=== PATIENT | female | born 1975 | race Asian ===

== ENCOUNTER → 2024-03-30 18:34 | Outpatient (REF) | payer OTHER, SELFPAY | LOC: WDC 18:34 | PROVIDERS: ATTENDING PHYSICIAN Family Medicine | DX: Z12.31 Encounter for screening mammogram for malignant neoplasm of breast (principal) | CPT/HCPCS: 77063; 77067 ==

== ENCOUNTER 2024-07-04 19:03 | Emergency (ER) | payer OTHER, SELFPAY ==
[2024-07-04 19:10] VITALS: BP 141/91
[2024-07-04 19:22] VITALS: BP 122/76
[2024-07-04 19:40] VITALS: BMI 40.5
[2024-07-04 19:44] LABS: % Basophils 0.6 % (0-2); % Immature Granulocytes 0.6 % (0-0.5); % Lymphocytes 33.1 % (20.5-51.1); % Monocytes 5.6 % (1.7-9.3); % Neutrophils 58.1 % (42.2-75.2); Absolute Basophils 0.1 10^3/uL (0-0.2); Absolute Eosinophils 0.2 10^3/uL (0-0.7); Absolute Immature Granulocytes 0.1 10^3/uL (0-0.05); Absolute Lymphocytes 2.8 10^3/uL (1.2-3.4); Absolute Monocytes 0.5 10^3/uL (0.1-0.6); Absolute Neutrophils 4.9 10^3/uL (1.4-6.5); Hematocrit 36.4 % (37.0-47.0); Mean Corp Hgb Conc. 35.7 g/dL (33.0-37.0); Mean Corpuscular Hgb 27.9 pg (27.0-31.0); Mean Corpuscular Volume 78.1 fL (81.0-99.0); Mean Platelet Volume 10.3 fL (7.4-10.4); Nucleated Red Blood Cells % 0 %; Platelet Count 219 10^3/uL (130-400); Red Blood Cell Count 4.66 10^6/uL (4.20-5.40); Red Cell Dist. Width 12.3 % (11.5-14.5); White Blood Cell Count 8.5 10^3/uL (4.8-10.8)
[2024-07-04 20:13] LABS: ALT (SGPT) 33 U/L (0-35); AST (SGOT) 28 U/L (14-36); Albumin 4.1 g/dl (3.5-5.0); Alkaline Phosphatase 94 U/L (38-126); Blood Urea Nitrogen 11 mg/dl (7-17); Calcium 9.5 mg/dl (8.4-10.2); Carbon Dioxide 27 mmol/L (22-30); Chloride 97 mmol/L (98-107); Estimated Creatinine Clearance 120 ml/min; Glucose 356 mg/dl (70-99); Potassium 4.2 mmol/L (3.5-5.1); Sodium 135 mmol/L (135-145); Total Bilirubin 1.3 mg/dl (0.2-1.3); Total Protein 6.7 g/dl (6.3-8.2); eGFR > 60.00
[2024-07-04 20:16] LABS: Troponin I < 0.012 ng/ml
[2024-07-04 20:18] LABS: D-Dimer 0.54 ug/mlFEU (0.00-0.50)
[2024-07-04 20:36] VITALS: BP 130/87
[2024-07-04] MEDS: NSS 1000 IV (20:52)
[2024-07-04 21:00] VITALS: BP 149/104
[2024-07-04 21:03] VITALS: BP 153/92
--- NOTE | 2024-07-04 21:24 | ED.GENMED ---
History of Present Illness
General
Chief Complaint: Chest Pain
Source: patient and family
Exam Limitations: none
Time Seen by Provider: 07/04/24 19:24
Nursing documentation reviewed up to this point in time: agreed with
History of Present Illness
History of Present Illness:
48-year-old female presenting to the emergency department today with concerns of chest discomfort starting yesterday seems to come and go seems to be worse when laying mainly to the left side with some associated shortness of breath. Denies similar
symptoms in the past. Improved symptoms since arrival here.
Past History
Past History
ED Past Medical History: Asthma; Negative HTN, Hypercholesterolemia or NIDDM
ED Past Surgical History: Other (Neck biopsy)
Social History
Tobacco: Non-smoker
Alcohol: None
Drug: None
Personal:
Living: with family
Employment: Employed
Review of Systems
Review of Systems
Allergies reviewed?: Yes
All Other Systems: ROS reviewed and negative except as documented in HPI and ROS
Phy Exam
Physical Exam
Physical Exam:
GENERAL: Alert , in no apparent distress
EYE: pupils equal and reactive
NECK: Supple, no significant adenopathy.
ENT: o/p clr, mmm.
CARDIAC: Regular rate and rhythm .
LUNGS: Clear breath sounds bilaterally, no acute respiratory distress, no wheezes/rales/rhonchi
ABDOMEN: Soft, without focal tenderness, no r/g, no cvat
NEUROLOGICAL: Alert and oriented, no focal neuro deficits
SKIN: Warm and dry, skin intact.
MUSCULOSKELETAL: No edema, well perfused.
PSYCH: Normal and appropriate interaction.
Scores
Heart Score for Chest Pain Patients
STEMI patient?: No
History: Slightly or Non-Suspicious
ECG: Normal
Age: >45 - <65 years
Risk Factors: 1 or 2 Risk Factors
Troponin: </= Normal Limit
Heart Score for Chest Pain Patients: 2
Heart Score Risk: 2.5% MACE over next 6 weeks
Course
Orders/Labs/Results
Orders:
Orders
07/04/24 19:04
EKG [Electrocardiogram (*1)] Urgent
Reason for Study: Chest Pain
EKG- Treatment ONCE
07/04/24 19:18
Cardiac Monitoring- Treatment ONCE
IV Insert/Care/Rem.- Treatment PRN
O2 Therapy [RESP] Urgent
Titrate/Wean O2 to maintain O2 sat greater than (%): 90
Special Instructions: Maintain sats >/=90%
Pulse Ox/spot Check [RESP] Urgent
Quantity: 1
Special Instructions: ON ROOM AIR
07/04/24 19:38
Complete Blood Count/With Diff Urgent
Comprehensive Metabolic Panel Urgent
Troponin I Urgent
07/04/24 19:54
Chest [CR Chest - 2 Views ] Urgent
Comment:
Reason For Exam: cp
07/04/24 20:01
D-Dimer Urgent
07/04/24 20:22
CT Chest Pe Study Urgent
Comment:
Reason For Exam: cp sob tachy
0.9% Sodium Chloride 1000 ml [Nss] 1,000 ml IV BOLUS
Abnormal Lab Results
07/04/24 07/04/24
19:38 20:01
Hct 36.4 L %
(37.0-47.0)
MCV 78.1 L fL
(81.0-99.0)
Abs Immat Gran (auto) 0.1 H 10^3/uL
(0-0.05)
Immature Gran % 0.6 H %
(0-0.5)
D-Dimer 0.54 H ug/mlFEU
(0.00-0.50)
Chloride 97 L mmol/L
(98-107)
Creatinine 0.5 L mg/dL
(0.6-1.0)
Glucose 356 H mg/dl
(70-99)
07/04/24 19:38
07/04/24 19:38
Vital Signs
Initial and Last Documented VS:
Initial Vital Signs
Temp Pulse Resp BP Pulse Ox
98.1 F 105 20 141/91 97
07/04/24 19:10 07/04/24 19:10 07/04/24 19:10 07/04/24 19:10 07/04/24 19:10
Last Documented Vital Signs
Temp Pulse Resp BP Pulse Ox
98.1 F 100 21 153/92 99
07/04/24 19:10 07/04/24 21:30 07/04/24 21:30 07/04/24 21:03 07/04/24 21:30
MDM/Problems Addressed
MDM/Problems Addressed:
48-year-old female presenting to the emergency department today with concerns of chest discomfort starting yesterday described as achy sometimes sharp since yesterday with associated shortness of breath. Upon arrival tachycardic. Denies any recent
trauma surgery mobilization but does have some chronic leg swelling D-dimer was ordered considering this which was mildly elevated concerning this a CT scan was obtained. Additionally glucose level of 356 was given a liter of fluid to treat this
troponin negative chest x-ray without emergent findings EKG without emergent findings otherwise. CT scan without emergent findings additional labs showing elevated glucose level which she was given fluids for otherwise will follow-up closely with
her primary care doctor low risk for ACS at this time return precautions given.
*Critical Care Note
Total Time (30-74mins, 75-104mins- exclusive of procedures): Not Applicable
ED Attending Note
-
Portions of this chart may have been created with voice recognition software.� Occasional wrong word or��sound alike� substitutions may have occurred due to the inherent limitations of voice recognition software.
Discharge Plan
Departure
Patient Disposition: Home (Routine Discharge)
Date of Disposition: 07/04/24
Time of Disposition: 22:46
Patient with high blood pressure during this ER visit?: No
Condition: Good
Covid-19: Not Applicable
Discharge Problem:
Chest pain
Instructions: Chest Pain DCA Follow Up
Prescriptions:
No Action
montelukast [Singulair] 5 MG tablet,chewable
10 mg PO DAILY PRN (Reason: allergy)
cetirizine [Zyrtec] 5 MG tablet
10 mg PO DAILY PRN (Reason: allergy)
albuterol sulfate 1 PUFF HFA aerosol inhaler
2 puff inhalation R Q4HPRN PRN (Reason: wheezing)
atorvastatin 40 mg Tablet
40 mg PO HS
Vitamin C 1,000 mg Tablet Extended Release
2,000 mg PO DAILY
Mounjaro 7.5 mg/0.5 mL Pen Injector
7.5 mg SC QWEEK
metformin 1,000 MG tablet
1,500 mg PO DAILY
Referrals:
Georgiana Culp DO [Family Provider] -
Activity Restrictions/Additional Instructions:
You came to the emergency department today with concerns of chest discomfort. Here you had a reassuring assessment but did show hyperglycemia. Please make sure this is controlled properly. Please have close with cardiology. Return to the
emergency department for any worsening, new or concerning symptoms.
Interventions
Interventions:
*Risk Screen - Suicide Last Done: 07/04/24 19:10
*General Assessment Last Done: 07/04/24 19:10
*Neglect/Abuse Screening Last Done: 07/04/24 19:10
ED- Fall Risk Assessment Last Done: 07/04/24 19:40
*Nursing Disposition Last Done: 07/04/24 22:53
ED- Cardiac Assessment Last Done: 07/04/24 19:40
Discharge Date and Time
Discharge Date/Time: 07/04/24 22:53
Print Language: SERBIAN
== END 2024-07-04 22:53 | disposition home or self-care (01) ==
LOC: EMR 19:03
PROVIDERS: Physician Assistant; EMERGENCY PHYSICIAN Emergency Medicine; FAMILY PHYSICIAN Family Medicine
DX: R07.89 Other chest pain (principal); R79.1 Abnormal coagulation profile; J45.909 Unspecified asthma, uncomplicated
CPT/HCPCS: 96360; 99285; 71046; 71275; 80053; 84484; 85025; 85379; 93005; Q9967

== ENCOUNTER → 2024-07-31 08:00 | Outpatient (REF) | payer OTHER, SELFPAY | LOC: HWRCS 08:00 | PROVIDERS: ATTENDING PHYSICIAN Family Medicine | DX: R01.1 Cardiac murmur, unspecified (principal); E07.89 Other specified disorders of thyroid | CPT/HCPCS: 76536 ==

== ENCOUNTER → 2024-07-31 08:29 | Outpatient (REF) | payer OTHER, SELFPAY | LOC: HWRAD 08:29 | PROVIDERS: ATTENDING PHYSICIAN Family Medicine | DX: R01.1 Cardiac murmur, unspecified (principal); E07.89 Other specified disorders of thyroid | CPT/HCPCS: 76536; 93306 ==

== ENCOUNTER 2024-08-09 15:18 | Emergency (ER) | payer OTHER, SELFPAY ==
[2024-08-09 15:24] VITALS: BP 131/91
[2024-08-09] MEDS: TORADOL 15 MG IV (17:16)
[2024-08-09 17:34] VITALS: BMI 37.2
[2024-08-09 17:39] VITALS: BP 137/82
[2024-08-09 18:00] VITALS: BP 136/85
--- NOTE | 2024-08-09 18:11 | ED.GENMED ---
History of Present Illness
<Trice Hayes PA-C - Last Filed: 08/11/24 12:50>
General
Chief Complaint: Skin Problem
Source: patient
Exam Limitations: none
Time Seen by Provider: 08/09/24 16:33
Nursing documentation reviewed up to this point in time: agreed with
History of Present Illness
History of Present Illness:
49 y/o F with h/o NIDDM
Being treated for shingles. Patient says she started with pain in her right back about 5 days ago and she went to urgent care where they thought it was musculoskeletal and she was given a muscle relaxer and lidocaine patch. Patient says the
following day she broke out in a vesicular rash to her back which wraps around to her axilla and under her right breast. She saw her family doctor where they gave her gabapentin 100 mg 3 times daily and Valtrex 1000 mg 3 times daily. Patient says
she started taking those but the pain was more significant over the course of 24 to 48 hours so she called them and 2 days ago they increased her gabapentin to 200 mg 3 times a day. She is continue to have new lesions but all within the same
dermatome on that breast and some crusting of the lesions in the posterior back region however over the last 24 hours she started having pain to her right neck that shoots up into her head behind her ear. She says she felt like a fullness in her
ear without hearing loss. She also felt like her right eye could be possibly blurry but she was not sure. She is worried about Dakota Galindo syndrome or herpes ophthalmicus although she did not see any rash anywhere. She has no eye pain. Patient
dad had a ruptured brain aneurysm.
Patient says she feels fine and then gets intermittent severe pains in her right head. She has not had any overt dizziness, nausea or vomiting
Past History
<Trice Hayes PA-C - Last Filed: 08/11/24 12:50>
Past History
ED Past Medical History: Asthma; Negative HTN, Hypercholesterolemia or NIDDM
ED Past Surgical History: Other (Neck biopsy)
Social History
Tobacco: Non-smoker
Alcohol: None
Drug: None
Personal:
Living: with family
Employment: Employed
Review of Systems
<Trice Hayes PA-C - Last Filed: 08/11/24 12:50>
Review of Systems
Allergies reviewed?: Yes
All Other Systems: Not applicable
Phy Exam
<Trice Hayes PA-C - Last Filed: 08/11/24 12:50>
Physical Exam
Physical Exam:
GENERAL: Alert , in no apparent distress, occasionally gets a shooting pain where she has to stop talking and hold her right head
HEAD: NCAT
EYE: pupils equal and reactive, no nystagmus, no photophobia
NECK: Supple,full rom, nontender
Nontender, no lymphadenopathy, no rash
ENT: o/p clr, mmm. Ear normal, no vesicles
CARDIAC: Regular rate and rhythm . no edema
LUNGS: Clear breath sounds bilaterally, no acute respiratory distress, no wheezes/rales/rhonchi
ABDOMEN: Soft, without focal tenderness, no r/g, no cvat
NEUROLOGICAL: Alert and orientedx 4, cn intact, no facial asymmetry, 5/5 strength in UE/LE, sensation intact, romberg neg, ambulates without assistance, neg pronator drift
SKIN: Warm and dry, patient has a vesicular rash consistent with herpes zoster in the right back wrapping around to her front and including on top of her right breast, there is no obvious signs of cellulitis
MUSCULOSKELETAL: No edema, well perfused.
PSYCH: Normal and appropriate interaction.
Course
<Trice Hayes PA-C - Last Filed: 08/11/24 12:50>
Orders/Labs/Results
Orders:
Orders
08/09/24 17:02
CT Head & Neck Angio W/wo IV Urgent
Comment:
Reason For Exam: pulsating pain neck to head right side today;
Ketorolac [Toradol] 15 mg IV NOW STA
08/09/24 17:32
C-Reactive Protein Urgent
Comment: ADDON
Complete Blood Count/With Diff Urgent
Comprehensive Metabolic Panel Urgent
ESR [Erythrocyte Sed Rate] Urgent
08/09/24 19:44
Add On- LAB Urgent
Tests Added?: crp
08/09/24 20:15
Oxycodone [Roxicodone] 5 mg PO NOW STA
08/09/24 20:38
Prednisone [Deltasone] 50 mg PO NOW STA
Abnormal Lab Results
08/09/24
17:32
MCV 78.9 L fL
(81.0-99.0)
ESR 66 H mm/hour
(0-20)
Creatinine 0.5 L mg/dL
(0.6-1.0)
Glucose 129 H mg/dl
(70-99)
Total Bilirubin 2.0 H mg/dl
(0.2-1.3)
AST 40 H U/L
(14-36)
ALT 62 H U/L
(0-35)
08/09/24 17:32
08/09/24 17:32
Vital Signs
Initial and Last Documented VS:
Initial Vital Signs
Temp Pulse Resp BP Pulse Ox
98.6 F 111 18 131/91 94
08/09/24 15:24 08/09/24 15:24 08/09/24 15:24 08/09/24 15:24 08/09/24 15:24
Last Documented Vital Signs
Temp Pulse Resp BP Pulse Ox
98.6 F 95 21 123/82 100
08/09/24 15:24 08/09/24 21:00 08/09/24 21:00 08/09/24 21:00 08/09/24 21:00
<Sandoval Sagastume MD - Last Filed: 08/09/24 20:45>
Orders/Labs/Results
Orders:
Orders
08/09/24 17:02
CT Head & Neck Angio W/wo IV Urgent
Comment:
Reason For Exam: pulsating pain neck to head right side today;
Ketorolac [Toradol] 15 mg IV NOW STA
08/09/24 17:32
C-Reactive Protein Urgent
Comment: ADDON
Complete Blood Count/With Diff Urgent
Comprehensive Metabolic Panel Urgent
ESR [Erythrocyte Sed Rate] Urgent
08/09/24 19:44
Add On- LAB Urgent
Tests Added?: crp
08/09/24 20:15
Oxycodone [Roxicodone] 5 mg PO NOW STA
08/09/24 20:38
Prednisone [Deltasone] 50 mg PO NOW STA
Abnormal Lab Results
08/09/24
17:32
MCV 78.9 L fL
(81.0-99.0)
ESR 66 H mm/hour
(0-20)
Creatinine 0.5 L mg/dL
(0.6-1.0)
Glucose 129 H mg/dl
(70-99)
Total Bilirubin 2.0 H mg/dl
(0.2-1.3)
AST 40 H U/L
(14-36)
ALT 62 H U/L
(0-35)
08/09/24 17:32
08/09/24 17:32
Vital Signs
Initial and Last Documented VS:
Initial Vital Signs
Temp Pulse Resp BP Pulse Ox
98.6 F 111 18 131/91 94
08/09/24 15:24 08/09/24 15:24 08/09/24 15:24 08/09/24 15:24 08/09/24 15:24
Last Documented Vital Signs
Temp Pulse Resp BP Pulse Ox
98.6 F 95 21 123/82 100
08/09/24 15:24 08/09/24 21:00 08/09/24 21:00 08/09/24 21:00 08/09/24 21:00
<Trice Hayes PA-C - Last Filed: 08/11/24 12:50>
MDM/Problems Addressed
Differential Diagnosis Includes:
Nerve pain, zoster, aneurysm, dissection, giant cell arteritis
MDM/Problems Addressed:
49-year-old female with a history of qnv-[id number]-wybfhurnu diabetes and family history of a brain aneurysm presents with severe intermittent right-sided neck pain that radiates up into her head and feels like a shooting sharp pain. It last for a
second and then goes away. She also has shingles which was diagnosed several days ago and has been on antiviral therapy as well as gabapentin. Her gabapentin was increased because of her right sided back pain but it is not helping. The pain in
her head is a new symptom over the last 24 hours. She has not had any overt vision changes but feels like it may not be a totally normal. She is not having any fatigue with chewing. She has no tenderness to her scalp. Patient has not had any
fevers or chills, there is no new rash in the region where her pain was in her head and neck.
There are no lesions in her ear or on her neck
She does have a zoster rash on her right back and wrapping around to her right breast
She is neuro intact
her vision is intact grossly
she has no eye pain
she is visibly having shooting pains right neck to head frequently which last 1 second
no rash in this region
labs sohw elevated ESR but normal CRP
no scalp tendenress, faitgue wht chewing; unlikely vasculitis wihch can sometimes occur with VZV
ct head/nekc angio neg
pt has thyroid nodules
already had thryoid US outpatient
given oxycodone for pain
will increase the gabapentin as this pain she has appears like nerve pain
close f/u encouraged
i spoke with rheum who agreed with round of steroids and they will see her in the office to make florence eshe doens't need eval for GCA.
<Trice Hayes PA-C - Last Filed: 08/11/24 12:50>
*Critical Care Note
Total Time (30-74mins, 75-104mins- exclusive of procedures): Not Applicable
ED Attending Note
<Trice Hayes PA-C - Last Filed: 08/11/24 12:50>
-
Portions of this chart may have been created with voice recognition software.� Occasional wrong word or��sound alike� substitutions may have occurred due to the inherent limitations of voice recognition software.
<Sandoval Sagastume MD - Last Filed: 08/09/24 20:45>
ED Attending Note
Patient seen and examined by attending physician: Yes
I performed the substantive portion of visit, reviewed & personally made and approve the management plan that is documented in note by myself or JOEL.: Yes
ED Attending Note:
49-year-old female complaining of pain to the right neck and right temporal area. Possibly minimal visual issues with this. Started a few days ago. Treated for shingles that started 3 to 4 days ago. Currently on antivirals. No true visual
issues no other complaints.
On exam patient is nontoxic in no distress. Clear vesicular rash across the upper right back towards the right flank breast to the midline sternum. No secondary bacterial infection. No respiratory distress. Mild temporal tenderness. No
swelling. Grossly nonfocal.
Impression is nervelike pain across the neck into the right yarsanism area. Neurologically stable. Elevated ESR could be secondary to shingles. Would have to entertain the possibility of a secondary temporal arteritis however. Will start prednisone
to form 40 mg. Follow-up with rheumatology. Copy of CT report will be given to patient for follow-up of her thyroid nodules and calcified coronary arteries. The symptoms are not coronary like.
Discharge Plan
Departure
Patient Disposition: Home (Routine Discharge)
Date of Disposition: 08/09/24
Time of Disposition: 20:39
Patient with high blood pressure during this ER visit?: No
Condition: Fair
Covid-19: Not Applicable
Discharge Problem:
Zoster, Nerve pain
Instructions: Neuropathic pain, Shingles
Prescriptions:
New
prednisone 20 mg tablet
40 mg PO DAILY 3 Days Qty: 6 0RF
oxycodone 5 mg tablet
5 mg PO Q8H PRN (Reason: Pain) Qty: 12 0RF
gabapentin 100 mg capsule
100 mg PO TID Qty: 30 0RF
Rx Instructions:
take 300 mg tid po as needed for nerve pain
No Action
montelukast [Singulair] 5 MG tablet,chewable
10 mg PO DAILY PRN (Reason: allergy)
cetirizine [Zyrtec] 5 MG tablet
10 mg PO DAILY PRN (Reason: allergy)
albuterol sulfate 1 PUFF HFA aerosol inhaler
2 puff inhalation R Q4HPRN PRN (Reason: wheezing)
atorvastatin 40 mg Tablet
40 mg PO HS
Vitamin C 1,000 mg Tablet Extended Release
2,000 mg PO DAILY
Mounjaro 7.5 mg/0.5 mL Pen Injector
7.5 mg SC QWEEK
metformin 1,000 MG tablet
1,500 mg PO DAILY
Referrals:
Carola Mclain MD [Consulting Staff] - Follow up in 2-3 days
Georgiana Culp DO [Family Provider] -
Activity Restrictions/Additional Instructions:
YOUR PAIN IS LIKELY RELATED TO THE NERVE PAIN
YOU HAD NO SIGN OF ANEURYSM
YOU DO HAVE THYROID NODULES PLEASE FOLLOW UP
CONTINUE THE VALTREX
TAKE PREDNISOEN 40 MG ONCE A DAY FOR 3 DAYS STARTING TOMORROW
WATCH YOUR BLOOD SUGARS ON THIS MEDICATION
FOR PAIN YOU CAN INCREASE YOUR GABAPENTIN TO 300 MG 2-3 TIME SA DAY
FI YOU NEED TO YOU CAN TRY OXYCODONE 5 MG EVERY 8 HOURS NEEDED , BUT THESE CAN COMBINE AND MAKE YOU SLEEPY
PLEASE CALL THE RHEUMATOLOGY OFFICE TOMORROW FOR A FOLLOW UP JUST IN CASE THE PAIN YOU ARE HAVING IS DUE TO INFLAMMATION IN YOUR VESSELS - THE RESPOOLER DID NOT THINK IT WOULD BE LIKELY BUT THEY WOULD LIKE YOU TO FOLLOW UP
RETURN FOR ANY COCNERNS: VISION LOSS OR WOSRENING VISION CHANGES, SEVERE PAIN, WEAKNESS, ETC
Interventions
Interventions:
*Risk Screen - Suicide Last Done: 08/09/24 15:24
*General Assessment Last Done: 08/09/24 15:24
*Neglect/Abuse Screening Last Done: 08/09/24 15:24
ED- Fall Risk Assessment Last Done: 08/09/24 17:34
*ED COVID-19 Vaccine History Last Done: 08/09/24 17:34
*Nursing Disposition Last Done: 08/09/24 21:05
ED-Skin Assessment Last Done: 08/09/24 17:36
Discharge Date and Time
Discharge Date/Time: 08/09/24 21:16
Print Language: PERSIAN
[2024-08-09 18:33] LABS: % Basophils 0.7 % (0-2); % Eosinophils 3.4 % (0-6); % Immature Granulocytes 0.4 % (0-0.5); % Lymphocytes 28.3 % (20.5-51.1); % Monocytes 6.6 % (1.7-9.3); % Neutrophils 60.6 % (42.2-75.2); Absolute Basophils 0.1 10^3/uL (0-0.2); Absolute Eosinophils 0.2 10^3/uL (0-0.7); Absolute Monocytes 0.5 10^3/uL (0.1-0.6); Absolute Neutrophils 4.3 10^3/uL (1.4-6.5); Hematocrit 39.7 % (37.0-47.0); Hemoglobin 13.6 g/dL (12.0-16.0); Mean Corp Hgb Conc. 34.3 g/dL (33.0-37.0); Mean Corpuscular Volume 78.9 fL (81.0-99.0); Mean Platelet Volume 10.1 fL (7.4-10.4); Nucleated Red Blood Cells % 0 %; Platelet Count 246 10^3/uL (130-400); Red Blood Cell Count 5.03 10^6/uL (4.20-5.40); Red Cell Dist. Width 12.5 % (11.5-14.5); White Blood Cell Count 7.1 10^3/uL (4.8-10.8)
[2024-08-09 18:48] LABS: ALT (SGPT) 62 U/L (0-35); AST (SGOT) 40 U/L (14-36); Albumin 4.9 g/dl (3.5-5.0); Alkaline Phosphatase 82 U/L (38-126); Blood Urea Nitrogen 10 mg/dl (7-17); Calcium 9.9 mg/dl (8.4-10.2); Carbon Dioxide 28 mmol/L (22-30); Chloride 99 mmol/L (98-107); Estimated Creatinine Clearance 113 ml/min; Glucose 129 mg/dl (70-99); Potassium 4.8 mmol/L (3.5-5.1); Sodium 140 mmol/L (135-145); Total Protein 7.9 g/dl (6.3-8.2); eGFR > 60.00
[2024-08-09 18:52] LABS: Erythrocyte Sed Rate 66 mm/hour (0-20)
[2024-08-09 19:42] VITALS: BP 127/82
[2024-08-09 20:00] VITALS: BP 122/79
[2024-08-09] MEDS: ROXICODONE 5 MG PO (20:19)
[2024-08-09] MEDS: DELTASONE 50 MG PO (20:41)
[2024-08-09 21:00] VITALS: BP 123/82
== END 2024-08-09 21:16 | disposition home or self-care (01) ==
LOC: EMR 15:18
PROVIDERS: Physician Assistant; EMERGENCY PHYSICIAN Emergency Medicine; FAMILY PHYSICIAN Family Medicine
DX: B02.9 Zoster without complications (principal); M79.2 Neuralgia and neuritis, unspecified; E11.9 Type 2 diabetes mellitus without complications; J45.909 Unspecified asthma, uncomplicated; Z79.624 Long term (current) use of inhibitors of nucleotide synthesis; Z79.899 Other long term (current) drug therapy
CPT/HCPCS: 99284; 96374; 70496; 70498; 80053; 85025; 85652; 86140; Q9967

== ENCOUNTER → 2025-01-27 13:06 | Outpatient (REF) | payer OTHER, SELFPAY | LOC: MRI 3T 13:06 | PROVIDERS: ATTENDING PHYSICIAN Psychiatry & Neurology Neurology; FAMILY PHYSICIAN Student in an Organized Health Care Education/Training Program | DX: G43.709 Chronic migraine without aura, not intractable, without status migrainosus (principal) | CPT/HCPCS: 70553; A9575 ==

== ENCOUNTER → 2025-04-02 16:20 | Outpatient (REF) | payer OTHER, SELFPAY | LOC: WDC 16:20 | PROVIDERS: ATTENDING PHYSICIAN Obstetrics & Gynecology; FAMILY PHYSICIAN Student in an Organized Health Care Education/Training Program | DX: Z12.31 Encounter for screening mammogram for malignant neoplasm of breast (principal) | CPT/HCPCS: 77063; 77067 ==